=== PATIENT | female | born 1995 | race African-American/Black ===

== ENCOUNTER 2022-03-27 23:25 | Emergency (ER) ==
[~2022-03-27] VITALS: Ht 162.6 cm; Wt 120.6 kg
[2022-03-27 23:26] VITALS: BP 176/102
== END 2022-03-27 23:47 | disposition left against medical advice (07) ==
LOC: M ED 23:25
DX: Z53.21 Procedure and treatment not carried out due to patient leaving prior to being seen by health care provider (principal)

== ENCOUNTER 2022-03-29 20:09 | Emergency (ER) | payer OTHER ==
[~2022-03-29] VITALS: Ht 162.6 cm; Wt 119.1 kg
[2022-03-29 23:19] VITALS: BP 142/82
[2022-03-29] MEDS ORDERED: MORPHINE 4 MG/ML 1ML VIAL/SYRINGE IV ONE (23:30)
[2022-03-29] MEDS ORDERED: ONDANSETRON 4MG/2ML VIAL IV ONE (23:30)
[2022-03-29 23:49] LABS: BASO # 0.1 10^3/uL (0.0-0.2); BASO % 0.3 % (0.0-1.0); EOS # 0.3 10^3/uL (0.0-0.5); EOS % 2.2 % (0.0-3.0); HEMATOCRIT 43.1 % (36.0-47.0); HEMOGLOBIN 14.6 g/dl (12.0-15.5); LYMPH # 5.7 10^3/uL (1.5-5.0); LYMPH % 37.9 % (24.0-44.0); MEAN CORPUSCULAR HEMOGLOBIN 26.8 pg (27.0-33.0); MEAN CORPUSCULAR HGB CONC 33.9 g/dl (32.0-36.5); MEAN CORPUSCULAR VOLUME 79.2 fl (80.0-96.0); MONO # 0.8 10^3/uL (0.0-0.8); MONO % 5.5 % (2.0-8.0); NEUTROPHILS # 8.1 10^3/uL (1.5-8.5); NEUTROPHILS % 53.8 % (36.0-66.0); PLATELET COUNT, AUTOMATED 274 10^3/uL (150-450); RED BLOOD COUNT 5.44 10^6/uL (4.00-5.40)
[2022-03-30 00:07] LABS: ERYTHROCYTE SEDIMENTATION RATE 33 mm/hr (0-20)
[2022-03-30] MEDS ORDERED: DALBAVANCIN 1,500 MG in D5W 250 ML IV ONE (00:30)
[2022-03-30] MEDS ORDERED: LIDOCAINE 1% MDV 20ML VIAL SC ONE (00:30)
[2022-03-30] MEDS ORDERED: MORPHINE 4 MG/ML 1ML VIAL/SYRINGE IV ONE (00:45)
[2022-03-30] MEDS ORDERED: HYDR-3713 PO (02:32)
[2022-03-30] MEDS ORDERED: NORCO 5/325MG TABLET (HOME DOSE PACK) PO ONE (02:50)
[2022-03-30 03:30] LABS: HEMOGLOBIN A1c 11.7 %
== END 2022-03-30 03:02 | disposition home or self-care (01) ==
LOC: M ED 20:09
DX: N61.1 Abscess of the breast and nipple (principal); E11.9 Type 2 diabetes mellitus without complications; F17.200 Nicotine dependence, unspecified, uncomplicated
CPT/HCPCS: 80047; 83036; 83605; 85025; 85652; 86140; 87070; 96365; 96375; 96376; 99284; J0875; J2270; J2405

== ENCOUNTER 2022-07-15 01:22 | Emergency (ER) | payer OTHER ==
[~2022-07-15] VITALS: Ht 160 cm; Wt 118.2 kg
[~2022-07-15 01:22] MED LIST: HYDR-3713 PO
[2022-07-15 01:23] VITALS: BP 171/99
[2022-07-15] MEDS ORDERED: KETOROLAC 30 MG/ML 1ML VIAL IV ONE (03:45)
[2022-07-15 04:05] LABS: GC DNA AMPLIFICATION NEGATIVE (NEGATIVE)
[2022-07-15 04:06] LABS: BASO % 0.3 % (0.0-1.0); EOS # 0.2 10^3/uL (0.0-0.5); EOS % 2.9 % (0.0-3.0); HEMATOCRIT 40.9 % (36.0-47.0); HEMOGLOBIN 13.9 g/dl (12.0-15.5); LYMPH # 3.3 10^3/uL (1.5-5.0); LYMPH % 41.6 % (24.0-44.0); MEAN CORPUSCULAR HEMOGLOBIN 26.7 pg (27.0-33.0); MEAN CORPUSCULAR VOLUME 78.5 fl (80.0-96.0); MONO # 0.6 10^3/uL (0.0-0.8); NEUTROPHILS # 3.8 10^3/uL (1.5-8.5); NEUTROPHILS % 47.9 % (36.0-66.0); PLATELET COUNT, AUTOMATED 212 10^3/uL (150-450); RED BLOOD COUNT 5.21 10^6/uL (4.00-5.40)
[2022-07-15 04:38] LABS: BLOOD UREA NITROGEN 10 MG/DL (7-18); CARBON DIOXIDE LEVEL 26 MEQ/L (21-32); CHLORIDE LEVEL 101 MEQ/L (98-107); CREATININE FOR GFR 0.68 MG/DL (0.55-1.30); GLOMERULAR FILTRATION RATE > 60.0 (>60); GLUCOSE, FASTING 284 MG/DL (70-100); MAGNESIUM LEVEL 1.8 MG/DL (1.8-2.4); POTASSIUM SERUM 3.9 MEQ/L (3.5-5.1); SODIUM LEVEL 133 MEQ/L (136-145)
[2022-07-15] MEDS ORDERED: metroNIDAZOLE (FLAGYL) 500MG TABLET PO ONE (04:45)
[2022-07-15] MEDS ORDERED: traMADol 50 MG TAB PO ONE (04:50)
[2022-07-15] MEDS ORDERED: METR-265 PO (04:53)
[2022-07-15] MEDS ORDERED: FLUC150T9 PO (04:53)
[2022-07-15] MEDS ORDERED: FLUCONAZOLE 50MG TABLET PO ONE (05:00)
[2022-07-15] MEDS ORDERED: VALA1TAB5 PO (05:49)
[2022-07-15] MEDS ORDERED: NORCO 5/325MG TABLET (HOME DOSE PACK) PO ONE (05:50)
== END 2022-07-15 06:47 | disposition home or self-care (01) ==
LOC: M ED 01:22
DX: A60.04 Herpesviral vulvovaginitis (principal); B37.31 Acute candidiasis of vulva and vagina
CPT/HCPCS: 80048; 81000; 81015; 83735; 85025; 87086; 87210; 87529; 87661; 87810; 87850; 96374; 99283; J1885

== ENCOUNTER 2022-07-28 04:20 | Emergency (ER) | payer OTHER ==
[~2022-07-28] VITALS: Ht 160 cm; Wt 117.7 kg
[~2022-07-28 04:20] MED LIST changes: +FLUC150T9 PO; +METR-265 PO; +VALA1TAB5 PO
[2022-07-28 04:21] VITALS: BP 144/85
[2022-07-28] MEDS ORDERED: METF-838 PO (04:29)
[2022-07-28] MEDS ORDERED: LISI5TAB11 PO (04:30)
[2022-07-28] MEDS ORDERED: ATOR1TAB21 PO (04:30)
[2022-07-28] MEDS ORDERED: FLUO40CA PO (04:30)
[2022-07-28] MEDS ORDERED: GLIM4TAB5 PO (04:30)
[2022-07-28] MEDS ORDERED: LEVO100T5 PO (04:30)
[2022-07-28] MEDS ORDERED: KETOROLAC 30 MG/ML 1ML VIAL IM ONE (06:30)
[2022-07-28] MEDS ORDERED: KETOROLAC 30 MG/ML 1ML VIAL IV ONE (06:40)
[2022-07-28] MEDS ORDERED: DOXYCYCLINE HYCLATE 100 MG in D5W MINI-BAG PLUS 100 ML IV ONE (06:40)
[2022-07-28] MEDS ORDERED: DOXY-443 PO (07:13)
[2022-07-28 07:14] LABS: BASO # 0.1 10^3/uL (0.0-0.2); BASO % 0.4 % (0.0-1.0); EOS # 0.3 10^3/uL (0.0-0.5); EOS % 1.9 % (0.0-3.0); HEMATOCRIT 38.9 % (36.0-47.0); LYMPH # 5.5 10^3/uL (1.5-5.0); LYMPH % 39.8 % (24.0-44.0); MEAN CORPUSCULAR HEMOGLOBIN 26.4 pg (27.0-33.0); MEAN CORPUSCULAR HGB CONC 33.4 g/dl (32.0-36.5); MEAN CORPUSCULAR VOLUME 78.9 fl (80.0-96.0); MONO # 0.6 10^3/uL (0.0-0.8); MONO % 4.2 % (2.0-8.0); NEUTROPHILS # 7.4 10^3/uL (1.5-8.5); NEUTROPHILS % 53.4 % (36.0-66.0); PLATELET COUNT, AUTOMATED 264 10^3/uL (150-450); RED BLOOD COUNT 4.93 10^6/uL (4.00-5.40); WHITE BLOOD COUNT 13.8 10^3/uL (4.0-10.0)
[2022-07-28 07:51] LABS: BLOOD UREA NITROGEN 11 MG/DL (7-18); CALCIUM LEVEL 9.2 MG/DL (8.5-10.1); CARBON DIOXIDE LEVEL 26 MEQ/L (21-32); CHLORIDE LEVEL 99 MEQ/L (98-107); CREATININE FOR GFR 0.63 MG/DL (0.55-1.30); GLOMERULAR FILTRATION RATE > 60.0 (>60); GLUCOSE, FASTING 325 MG/DL (70-100); SODIUM LEVEL 132 MEQ/L (136-145)
[2022-07-29] MEDS ORDERED: GLIM2TAB4 PO (22:27)
[2022-07-29] MEDS ORDERED: FLUO20CA22 PO (22:27)
[2022-07-29] MEDS ORDERED: DOXY-443 PO (22:27)
[2022-07-29] MEDS ORDERED: LEVE1INJ5 INJ (22:27)
[2022-07-29] MEDS ORDERED: med rec comment (22:28)
== END 2022-07-28 08:32 | disposition home or self-care (01) ==
LOC: M ED 04:20
DX: L02.91 Cutaneous abscess, unspecified (principal); L73.2 Hidradenitis suppurativa; E11.65 Type 2 diabetes mellitus with hyperglycemia; E78.5 Hyperlipidemia, unspecified; E03.9 Hypothyroidism, unspecified; F17.200 Nicotine dependence, unspecified, uncomplicated; Z79.4 Long term (current) use of insulin; Z79.84 Long term (current) use of oral hypoglycemic drugs
CPT/HCPCS: 80048; 84702; 85025; 87040; 87070; 87077; 87186; 87205; 96361; 96374; 99283; J1885

== ENCOUNTER 2022-07-29 13:36 | Emergency (ER) | payer OTHER ==
[~2022-07-29] VITALS: Ht 160 cm; Wt 118.2 kg
[~2022-07-29 13:36] MED LIST changes: +ATOR1TAB21 PO; +DOXY-443 PO; +FLUO40CA PO; +GLIM4TAB5 PO; +LEVO100T5 PO; +LISI5TAB11 PO; +METF-838 PO
[2022-07-29] MEDS ORDERED: KETOROLAC 30 MG/ML 1ML VIAL IM ONE (15:50)
[2022-07-29] MEDS ORDERED: LIDOCAINE 1% MDV 20ML VIAL SC ONE (15:50)
[2022-07-29 16:37] VITALS: BP 139/68
[2022-07-29] MEDS ORDERED: LEVE1INJ5 INJ (22:27)
[2022-07-29] MEDS ORDERED: DOXY-443 PO (22:27)
[2022-07-29] MEDS ORDERED: FLUO20CA22 PO (22:27)
[2022-07-29] MEDS ORDERED: GLIM2TAB4 PO (22:27)
[2022-07-29] MEDS ORDERED: med rec comment (22:28)
== END 2022-07-29 16:39 | disposition home or self-care (01) ==
LOC: M ED 13:36
DX: N61.1 Abscess of the breast and nipple (principal); L03.313 Cellulitis of chest wall; E11.9 Type 2 diabetes mellitus without complications; Z79.899 Other long term (current) drug therapy; Z79.84 Long term (current) use of oral hypoglycemic drugs; Z79.890 Hormone replacement therapy
CPT/HCPCS: 10060; 87070; 87205; 96372; 99284; J1885

== ENCOUNTER 2022-07-29 19:23 | Inpatient (IN) | payer OTHER ==
[~2022-07-29] VITALS: Ht 160 cm; Wt 130.7 kg
[2022-07-29] MEDS ORDERED: CHARCOAL ACTIVATED LIQUID 25 GM/120 ML BTL PO ONE (19:40)
[2022-07-29] MEDS: NS 1,000 ML IV SCH (19:51)
[2022-07-29 19:52] LABS: HEMATOCRIT 44.8 % (36.0-47.0); MEAN CORPUSCULAR HEMOGLOBIN 26.9 pg (27.0-33.0); MEAN CORPUSCULAR HGB CONC 34.2 g/dl (32.0-36.5); MEAN CORPUSCULAR VOLUME 78.9 fl (80.0-96.0); PLATELET COUNT, AUTOMATED 315 10^3/uL (150-450); RED BLOOD COUNT 5.68 10^6/uL (4.00-5.40); WHITE BLOOD COUNT 15.6 10^3/uL (4.0-10.0)
[2022-07-29 20:03] LABS: HEMOGLOBIN 15.3 g/dl (12.0-15.5)
[2022-07-29 20:14] LABS: HCG, SERUM QUALITATIVE NEGATIVE (NEGATIVE)
[2022-07-29 20:31] LABS: RSV AMPLIFICATION NEGATIVE (NEGATIVE)
[2022-07-29 20:35] LABS: ALBUMIN 3.6 GM/DL (3.2-5.2); ALT/SGPT 33 U/L (12-78); BILIRUBIN,DIRECT 0.2 MG/DL (0.0-0.2); BILIRUBIN,TOTAL 0.8 MG/DL (0.2-1.0); BLOOD UREA NITROGEN 10 MG/DL (7-18); CALCIUM LEVEL 9.4 MG/DL (8.5-10.1); CARBON DIOXIDE LEVEL 27 MEQ/L (21-32); CHLORIDE LEVEL 101 MEQ/L (98-107); CREATININE FOR GFR 0.76 MG/DL (0.55-1.30); ETHYL ALCOHOL (ETHANOL) < 0.003 % (0.000-0.010); GLOMERULAR FILTRATION RATE > 60.0 (>60); GLUCOSE, FASTING 270 MG/DL (70-100); POTASSIUM SERUM 4.3 MEQ/L (3.5-5.1); SALICYLATE LEVEL < 1.7 MG/DL (5.0-30.0); SODIUM LEVEL 133 MEQ/L (136-145); TOTAL PROTEIN 7.5 GM/DL (6.4-8.2)
[2022-07-29 21:08] LABS: AMPHETAMINES LEVEL URINE NEGATIVE (NEGATIVE); BARBITURATES URINE NEGATIVE (NEGATIVE); BENZODIAZEPINES URINE NEGATIVE (NEGATIVE); CANNABINOIDS URINE POSITIVE (NEGATIVE); COCAINE METABOLITE URINE NEGATIVE (NEGATIVE); METHADONE URINE NEGATIVE (NEGATIVE); OPIATES URINE NEGATIVE (NEGATIVE); PHENCYCLIDINE URINE NEGATIVE (NEGATIVE)
[2022-07-29] MEDS ORDERED: LORazepam 2 MG/ML VIAL IV STA ×2 (21:43→23:17)
[2022-07-29] MEDS ORDERED: LORazepam 2 MG/ML VIAL As Ordered ONE (21:45)
[2022-07-29] MEDS ORDERED: MIDAZOLAM INJ 2MG/2ML VIAL (J2250 PER 1MG) IM ONE (22:25)
[2022-07-29] MEDS ORDERED: LEVE1INJ5 INJ (22:27)
[2022-07-29] MEDS ORDERED: DOXY-443 PO (22:27)
[2022-07-29] MEDS ORDERED: FLUO20CA22 PO (22:27)
[2022-07-29] MEDS ORDERED: GLIM2TAB4 PO (22:27)
[2022-07-29] MEDS ORDERED: med rec comment (22:28)
[2022-07-29] MEDS ORDERED: HOME MED LIST COMPLETE! XX SCH (22:30)
[2022-07-29] MEDS ORDERED: HALOPERIDOL 5MG/ML VIAL (J1630 PER 1) As Ordered ONE (22:51)
[2022-07-29] MEDS ORDERED: HALOPERIDOL 5MG/ML VIAL (J1630 PER 1) IM ONE (22:55)
[2022-07-30] MEDS: NS 1,000 ML IV SCH ×2 (00:48→10:30)
[2022-07-30] MEDS ORDERED: MAALOX 30 ML SUSP *UDC PO PRN (05:35)
[2022-07-30] MEDS ORDERED: MOM 30ML SUSPENSION UDC PO PRN (05:35)
[2022-07-30] MEDS ORDERED: OLANZapine ORAL DISINTEGRATING TAB 5MG PO PRN (05:35)
[2022-07-30] MEDS: LEVOTHYROXINE 100MCG TABLET (0.1MG) PO SCH (06:20)
[2022-07-30] MEDS ORDERED: metFORMIN XR 500MG TAB *GLUCOPHAGE XR PO SCH (08:00)
[2022-07-30] MEDS ORDERED: DOXYCYCLINE HYCLATE 100MG TABLET PO SCH (09:00)
[2022-07-30] MEDS ORDERED: GLIMEPIRIDE 2 MG TAB PO SCH (09:00)
[2022-07-30] MEDS ORDERED: LEVEMIR (INSULIN DETEMIR) 1 UNITS/0.01ML SC SCH ×2 (09:00→21:00)
[2022-07-30] MEDS ORDERED: NS 1,000 ML IV ONE (09:20)
[2022-07-30] MEDS ORDERED: GLUCOSE 4GM CHEW TABLET PO PRN (09:30)
[2022-07-30] MEDS ORDERED: GLUCAGON INJ 1MG VIAL SC PRN (09:30)
[2022-07-30] MEDS ORDERED: DEXTROSE 50% 50 ML SYRINGE IV PRN (09:30)
[2022-07-30] MEDS: FLUoxetine 20MG CAP PO SCH ×2 (09:40→21:15)
[2022-07-30] MEDS ORDERED: ACETAMINOPHEN TAB 650MG DOSE (2X325MG) PO PRN (09:50)
[2022-07-30 10:06] LABS: BASO # 0.1 10^3/uL (0.0-0.2); BASO % 0.5 % (0.0-1.0); EOS # 0.2 10^3/uL (0.0-0.5); EOS % 2.2 % (0.0-3.0); HEMATOCRIT 42.3 % (36.0-47.0); HEMOGLOBIN 13.9 g/dl (12.0-15.5); LYMPH # 4.4 10^3/uL (1.5-5.0); LYMPH % 43.7 % (24.0-44.0); MEAN CORPUSCULAR HEMOGLOBIN 26.3 pg (27.0-33.0); MEAN CORPUSCULAR HGB CONC 32.9 g/dl (32.0-36.5); MEAN CORPUSCULAR VOLUME 80.1 fl (80.0-96.0); MONO # 0.7 10^3/uL (0.0-0.8); MONO % 6.9 % (2.0-8.0); NEUTROPHILS # 4.7 10^3/uL (1.5-8.5); NEUTROPHILS % 46.4 % (36.0-66.0); PLATELET COUNT, AUTOMATED 278 10^3/uL (150-450); RED BLOOD COUNT 5.28 10^6/uL (4.00-5.40); WHITE BLOOD COUNT 10.1 10^3/uL (4.0-10.0)
[2022-07-30 10:16] LABS: INR 0.98; PROTHROMBIN TIME 13.2 SECONDS (12.5-14.5)
[2022-07-30 10:17] LABS: PARTIAL THROMBOPLASTIN TIME 27.4 SECONDS (24.8-34.2)
[2022-07-30 10:32] LABS: HEMOGLOBIN A1c 11.6 %
[2022-07-30] MEDS: LACTOBACILLUS ACIDOPHILUS CAP (BACID) PO SCH ×2 (10:37→17:56)
[2022-07-30 10:47] LABS: ALBUMIN 3.3 GM/DL (3.2-5.2); ALT/SGPT 29 U/L (12-78); BILIRUBIN,TOTAL 0.6 MG/DL (0.2-1.0); BLOOD UREA NITROGEN 7 MG/DL (7-18); CALCIUM LEVEL 9.3 MG/DL (8.5-10.1); CARBON DIOXIDE LEVEL 25 MEQ/L (21-32); CHLORIDE LEVEL 103 MEQ/L (98-107); CHOLESTEROL LEVEL 167 MG/DL (<200); CHOLESTEROL RISK RATIO 5.758 (<5); CREATININE FOR GFR 0.85 MG/DL (0.55-1.30); GLOMERULAR FILTRATION RATE > 60.0 (>60); GLUCOSE, FASTING 457 MG/DL (70-100); HDL CHOLESTEROL 29 MG/DL (>40); LDL CHOLESTEROL 80 MG/DL (<100); NON-HDL-C 138 MG/DL; POTASSIUM SERUM 4.3 MEQ/L (3.5-5.1); SODIUM LEVEL 134 MEQ/L (136-145); TOTAL PROTEIN 6.8 GM/DL (6.4-8.2); TRIGLYCERIDES LEVEL 290 MG/DL (<150)
[2022-07-30] MEDS ORDERED: LEVEMIR (INSULIN DETEMIR) 1 UNITS/0.01ML SC ONE (11:00)
[2022-07-30 11:21] LABS: ABG BASE EXCESS -1.8 (-2.0-2.0); ABG HCO3 22.1 MEQ/L (22.0-26.0); ABG O2 SATURATION 97.7 % (95.0-99.0); ABG PARTIAL PRESSURE CO2 34.8 mmHg (35.0-45.0); ABG PARTIAL PRESSURE O2 105.8 mmHg (75.0-100.0); ABG TOTAL CO2 23.1 MEQ/L (22.0-29.0)
[2022-07-30] MEDS ORDERED: LORazepam 2 MG/ML VIAL IV STA (11:24)
[2022-07-30 11:38] LABS: ACETONE/KETONE 1.58 MG/DL (<2.81)
[2022-07-30] MEDS: INSULIN LISPRO (NovoLOG) PER UNIT SC SCH ×3 (13:13→21:15)
[2022-07-30 15:10] VITALS: BP 149/82
[2022-07-30] MEDS: CLINDAMYCIN TOP 1% SOLN 60 ML BTL TOP SCH ×2 (15:24→21:16)
[2022-07-30] MEDS ORDERED: NS 1,000 ML IV SCH (20:40)
[2022-07-30] MEDS ORDERED: CEFUROXIME 500 MG TAB PO SCH (21:00)
[2022-07-30] MEDS: lisinopriL 5 MG TAB PO SCH (21:16)
[2022-07-30] MEDS: ATORVASTATIN 20 MG TAB PO SCH (21:16)
[2022-07-30 22:00] VITALS: BP 152/84
[2022-07-31] MEDS: traZODone 50 MG TAB PO PRN (00:50)
[2022-07-31 05:49] LABS: HEMATOCRIT 37.9 % (36.0-47.0); HEMOGLOBIN 12.6 g/dl (12.0-15.5); MEAN CORPUSCULAR HEMOGLOBIN 26.7 pg (27.0-33.0); MEAN CORPUSCULAR HGB CONC 33.2 g/dl (32.0-36.5); MEAN CORPUSCULAR VOLUME 80.3 fl (80.0-96.0); PLATELET COUNT, AUTOMATED 227 10^3/uL (150-450); RED BLOOD COUNT 4.72 10^6/uL (4.00-5.40); WHITE BLOOD COUNT 9.5 10^3/uL (4.0-10.0)
[2022-07-31 05:50] VITALS: BP 138/83
[2022-07-31] MEDS: LEVOTHYROXINE 100MCG TABLET (0.1MG) PO SCH (05:56)
[2022-07-31 06:26] LABS: ALBUMIN 2.8 GM/DL (3.2-5.2); ALT/SGPT 27 U/L (12-78); BILIRUBIN,TOTAL 0.5 MG/DL (0.2-1.0); BLOOD UREA NITROGEN 8 MG/DL (7-18); CALCIUM LEVEL 8.7 MG/DL (8.5-10.1); CARBON DIOXIDE LEVEL 26 MEQ/L (21-32); CHLORIDE LEVEL 106 MEQ/L (98-107); CREATININE FOR GFR 0.57 MG/DL (0.55-1.30); GLOMERULAR FILTRATION RATE > 60.0 (>60); GLUCOSE, FASTING 287 MG/DL (70-100); POTASSIUM SERUM 3.8 MEQ/L (3.5-5.1); SODIUM LEVEL 137 MEQ/L (136-145); TOTAL PROTEIN 5.9 GM/DL (6.4-8.2)
[2022-07-31] MEDS ORDERED: GLIMEPIRIDE 2 MG TAB PO SCH (07:30)
[2022-07-31] MEDS: LACTOBACILLUS ACIDOPHILUS CAP (BACID) PO SCH ×2 (08:56→17:03)
[2022-07-31] MEDS: FLUoxetine 20MG CAP PO SCH ×2 (08:56→20:34)
[2022-07-31] MEDS: LEVEMIR (INSULIN DETEMIR) 1 UNITS/0.01ML SC SCH ×2 (08:57→20:33)
[2022-07-31] MEDS: INSULIN LISPRO (NovoLOG) PER UNIT SC SCH ×4 (08:57→20:34)
[2022-07-31] MEDS: CLINDAMYCIN TOP 1% SOLN 60 ML BTL TOP SCH ×2 (09:40→20:35)
[2022-07-31] MEDS ORDERED: HALOPERIDOL 5MG/ML VIAL (J1630 PER 1) IM PRN (11:30)
[2022-07-31] MEDS ORDERED: LORazepam 2 MG/ML VIAL IM PRN (11:30)
[2022-07-31 14:00] VITALS: BP 140/82
[2022-07-31] MEDS: ENOXAPARIN 40MG/0.4ML SYRINGE (J1650 PER 10MG) SC SCH (17:03)
[2022-07-31 20:00] VITALS: BP 149/88
[2022-07-31] MEDS: ATORVASTATIN 20 MG TAB PO SCH (20:34)
[2022-07-31] MEDS: lisinopriL 5 MG TAB PO SCH (20:34)
[2022-08-01] MEDS: LEVOTHYROXINE 100MCG TABLET (0.1MG) PO SCH (05:18)
[2022-08-01 06:00] VITALS: BP 136/85
[2022-08-01 06:05] LABS: HEMATOCRIT 37.2 % (36.0-47.0); HEMOGLOBIN 12.4 g/dl (12.0-15.5); MEAN CORPUSCULAR HEMOGLOBIN 26.7 pg (27.0-33.0); MEAN CORPUSCULAR HGB CONC 33.3 g/dl (32.0-36.5); MEAN CORPUSCULAR VOLUME 80.2 fl (80.0-96.0); PLATELET COUNT, AUTOMATED 238 10^3/uL (150-450); RED BLOOD COUNT 4.64 10^6/uL (4.00-5.40)
[2022-08-01 06:41] LABS: ALBUMIN 2.9 GM/DL (3.2-5.2); ALT/SGPT 31 U/L (12-78); BILIRUBIN,TOTAL 0.4 MG/DL (0.2-1.0); BLOOD UREA NITROGEN 6 MG/DL (7-18); CALCIUM LEVEL 8.7 MG/DL (8.5-10.1); CARBON DIOXIDE LEVEL 26 MEQ/L (21-32); CHLORIDE LEVEL 107 MEQ/L (98-107); CREATININE FOR GFR 0.56 MG/DL (0.55-1.30); GLOMERULAR FILTRATION RATE > 60.0 (>60); GLUCOSE, FASTING 240 MG/DL (70-100); SODIUM LEVEL 141 MEQ/L (136-145); TOTAL PROTEIN 5.6 GM/DL (6.4-8.2)
[2022-08-01] MEDS: INSULIN LISPRO (NovoLOG) PER UNIT SC SCH ×4 (07:58→20:58)
[2022-08-01] MEDS: LACTOBACILLUS ACIDOPHILUS CAP (BACID) PO SCH ×2 (07:58→17:08)
[2022-08-01] MEDS: LEVEMIR (INSULIN DETEMIR) 1 UNITS/0.01ML SC SCH ×2 (08:00→21:05)
[2022-08-01] MEDS: FLUoxetine 20MG CAP PO SCH ×2 (08:00→21:03)
[2022-08-01] MEDS: CLINDAMYCIN TOP 1% SOLN 60 ML BTL TOP SCH ×2 (08:01→21:03)
[2022-08-01] MEDS: ENOXAPARIN 40MG/0.4ML SYRINGE (J1650 PER 10MG) SC SCH (08:01)
[2022-08-01] MEDS: SITagliptin 50 MG TAB (JANUVIA) PO SCH (08:08)
[2022-08-01 14:00] VITALS: BP 136/85
[2022-08-01] MEDS: lisinopriL 5 MG TAB PO SCH (21:03)
[2022-08-01] MEDS: CEFUROXIME 500 MG TAB PO SCH (21:03)
[2022-08-01] MEDS: ATORVASTATIN 20 MG TAB PO SCH (21:04)
[2022-08-01] MEDS: traZODone 50 MG TAB PO PRN ×2 (21:04)
[2022-08-01 22:00] VITALS: BP 142/84
[2022-08-02] MEDS: LEVOTHYROXINE 100MCG TABLET (0.1MG) PO SCH (05:19)
[2022-08-02 06:00] VITALS: BP 103/58
[2022-08-02] MEDS: LACTOBACILLUS ACIDOPHILUS CAP (BACID) PO SCH ×2 (08:29→17:54)
[2022-08-02] MEDS: FLUoxetine 20MG CAP PO SCH ×2 (08:29→20:24)
[2022-08-02] MEDS: CEFUROXIME 500 MG TAB PO SCH ×2 (08:29→20:24)
[2022-08-02] MEDS: SITagliptin 50 MG TAB (JANUVIA) PO SCH (08:29)
[2022-08-02] MEDS: ENOXAPARIN 40MG/0.4ML SYRINGE (J1650 PER 10MG) SC SCH (08:30)
[2022-08-02] MEDS: CLINDAMYCIN TOP 1% SOLN 60 ML BTL TOP SCH ×2 (08:30→20:27)
[2022-08-02] MEDS: INSULIN LISPRO (NovoLOG) PER UNIT SC SCH ×4 (08:31→20:29)
[2022-08-02] MEDS: LEVEMIR (INSULIN DETEMIR) 1 UNITS/0.01ML SC SCH ×2 (08:32→20:25)
[2022-08-02] MEDS ORDERED: SITA50TAB PO (12:35)
[2022-08-02] MEDS ORDERED: RISATAB3 PO (12:35)
[2022-08-02] MEDS ORDERED: LEVE1INJ5 INJ (12:35)
[2022-08-02] MEDS ORDERED: CLIN1SOL TOP (12:35)
[2022-08-02] MEDS ORDERED: INSULIN LISPRO (NovoLOG) PER UNIT SC SCH (17:30)
[2022-08-02] MEDS: traZODone 50 MG TAB PO PRN (20:24)
[2022-08-02] MEDS: ATORVASTATIN 20 MG TAB PO SCH (20:25)
[2022-08-02 20:26] VITALS: BP 140/79
[2022-08-02] MEDS: lisinopriL 5 MG TAB PO SCH (20:26)
[2022-08-03 05:04] VITALS: BP 140/82
[2022-08-03] MEDS: LEVOTHYROXINE 100MCG TABLET (0.1MG) PO SCH (05:26)
[2022-08-03] MEDS ORDERED: INSUHUMDS SC ×2 (07:49→10:36)
[2022-08-03] MEDS: ENOXAPARIN 40MG/0.4ML SYRINGE (J1650 PER 10MG) SC SCH (09:17)
[2022-08-03] MEDS: CEFUROXIME 500 MG TAB PO SCH (09:17)
[2022-08-03] MEDS: SITagliptin 50 MG TAB (JANUVIA) PO SCH (09:17)
[2022-08-03] MEDS: CLINDAMYCIN TOP 1% SOLN 60 ML BTL TOP SCH (09:17)
[2022-08-03] MEDS: LACTOBACILLUS ACIDOPHILUS CAP (BACID) PO SCH (09:17)
[2022-08-03] MEDS: FLUoxetine 20MG CAP PO SCH (09:17)
[2022-08-03] MEDS: INSULIN LISPRO (NovoLOG) PER UNIT SC SCH ×4 (09:18→12:28)
[2022-08-03] MEDS: LEVEMIR (INSULIN DETEMIR) 1 UNITS/0.01ML SC SCH (09:19)
[2022-08-03] MEDS ORDERED: RISATAB3 PO (10:36)
[2022-08-03] MEDS ORDERED: CLIN1SOL TOP (10:36)
[2022-08-03] MEDS ORDERED: SITA50TAB PO (10:36)
[2022-08-03] MEDS ORDERED: LEVE1INJ5 INJ (10:36)
== END 2022-08-03 12:37 | DRG 917 ==
LOC: M ED 19:23 → UNDOADMIN 07-30 05:33 → M ED INP 07-30 05:33 → ENRESERV 07-30 13:52 → M MSPAV 07-30 15:04
PROVIDERS: ADMIT Psychiatry & Neurology Psychiatry; ATTEND Student in an Organized Health Care Education/Training Program
DX: T39.1X2A Poisoning by 4-Aminophenol derivatives, intentional self-harm, initial encounter (principal); A41.9 Sepsis, unspecified organism; Z68.42 Body mass index [BMI] 45.0-49.9, adult; E11.9 Type 2 diabetes mellitus without complications; B00.9 Herpesviral infection, unspecified; E03.9 Hypothyroidism, unspecified; L73.2 Hidradenitis suppurativa; I10 Essential (primary) hypertension; E78.5 Hyperlipidemia, unspecified; E66.01 Morbid (severe) obesity due to excess calories; F31.9 Bipolar disorder, unspecified; F32.A Depression, unspecified; T14.91XA Suicide attempt, initial encounter; E87.20 Acidosis, unspecified; Z79.4 Long term (current) use of insulin; Z79.84 Long term (current) use of oral hypoglycemic drugs; Z79.890 Hormone replacement therapy; Z79.899 Other long term (current) drug therapy; N61.0 Mastitis without abscess; G47.00 Insomnia, unspecified; K59.00 Constipation, unspecified

== ENCOUNTER 2022-08-03 12:43 | Inpatient (IN) | payer OTHER ==
[~2022-08-03] VITALS: Ht 160 cm; Wt 119.2 kg
[~2022-08-03 12:43] MED LIST changes: +CLIN1SOL TOP; +FLUO20CA22 PO; +GLIM2TAB4 PO; +INSUHUMDS SC; +LEVE1INJ5 INJ; +RISATAB3 PO; +SITA50TAB PO; +med rec comment
[2022-08-03] MEDS ORDERED: MAALOX 30 ML SUSP *UDC PO PRN (13:35)
[2022-08-03] MEDS ORDERED: NICOTINE 21MG/24HR 1 EA TRANSDERMAL TD PRN (13:35)
[2022-08-03] MEDS ORDERED: MOM 30ML SUSPENSION UDC PO PRN (13:35)
[2022-08-03 18:15] VITALS: BP 168/82
[2022-08-03 18:29] VITALS: BP 168/82
[2022-08-03] MEDS ORDERED: DEXTROSE 50% 50 ML SYRINGE IV PRN (20:30)
[2022-08-03] MEDS ORDERED: GLUCOSE 4GM CHEW TABLET PO PRN (20:30)
[2022-08-03] MEDS ORDERED: GLUCAGON INJ 1MG VIAL SC PRN (20:30)
[2022-08-03] MEDS: ATORVASTATIN 20 MG TAB PO SCH (20:47)
[2022-08-03] MEDS: LEVEMIR (INSULIN DETEMIR) 1 UNITS/0.01ML SC SCH (20:47)
[2022-08-03] MEDS: FLUoxetine 20MG CAP PO SCH (20:47)
[2022-08-03] MEDS: INSULIN LISPRO (NovoLOG) PER UNIT SC SCH (20:48)
[2022-08-03] MEDS: traZODone 50 MG TAB PO PRN (23:14)
[2022-08-04] MEDS: LEVOTHYROXINE 100MCG TABLET (0.1MG) PO SCH (05:43)
[2022-08-04 06:23] VITALS: BP 128/86
[2022-08-04] MEDS: INSULIN LISPRO (NovoLOG) PER UNIT SC SCH ×5 (06:37→20:08)
[2022-08-04] MEDS ORDERED: LEVEMIR (INSULIN DETEMIR) 1 UNITS/0.01ML SC SCH (09:00)
[2022-08-04] MEDS: SITagliptin 50 MG TAB (JANUVIA) PO SCH (09:05)
[2022-08-04] MEDS: lisinopriL 5 MG TAB PO SCH (09:05)
[2022-08-04] MEDS: LEVEMIR (INSULIN DETEMIR) 1 UNITS/0.01ML SC SCH ×2 (09:05→20:08)
[2022-08-04] MEDS: FLUoxetine 20MG CAP PO SCH (09:05)
[2022-08-04] MEDS ORDERED: INSULIN LISPRO (NovoLOG) PER UNIT SC SCH (12:00)
[2022-08-04] MEDS: CEFUROXIME 500 MG TAB PO SCH ×2 (12:43→20:06)
[2022-08-04] MEDS: CLINDAMYCIN TOP 1% SOLN 60 ML BTL TOP SCH ×2 (13:28→21:02)
[2022-08-04] MEDS ORDERED: FLUoxetine 20MG CAP PO ONE (20:00)
[2022-08-04] MEDS: ATORVASTATIN 20 MG TAB PO SCH (20:07)
[2022-08-04] MEDS: traZODone 50 MG TAB PO PRN (21:00)
[2022-08-04] MEDS ORDERED: DIVALPROEX 500MG *ER* TAB PO SCH (21:00)
[2022-08-05] MEDS: LEVOTHYROXINE 100MCG TABLET (0.1MG) PO SCH (05:53)
[2022-08-05 06:27] VITALS: BP 141/86
[2022-08-05] MEDS: INSULIN LISPRO (NovoLOG) PER UNIT SC SCH ×6 (06:35→20:23)
[2022-08-05] MEDS: LEVEMIR (INSULIN DETEMIR) 1 UNITS/0.01ML SC SCH ×2 (08:02→20:23)
[2022-08-05] MEDS: SITagliptin 50 MG TAB (JANUVIA) PO SCH (08:02)
[2022-08-05] MEDS: CEFUROXIME 500 MG TAB PO SCH ×2 (08:02→20:22)
[2022-08-05] MEDS: CLINDAMYCIN TOP 1% SOLN 60 ML BTL TOP SCH ×2 (08:02→20:22)
[2022-08-05] MEDS: lisinopriL 5 MG TAB PO SCH (08:03)
[2022-08-05] MEDS: FLUoxetine 20MG CAP PO SCH (08:03)
[2022-08-05] MEDS: DIVALPROEX 500MG *ER* TAB PO SCH ×2 (12:03→20:22)
[2022-08-05] MEDS: ACETAMINOPHEN TAB 650MG DOSE (2X325MG) PO PRN ×2 (13:00→23:34)
[2022-08-05] MEDS: ATORVASTATIN 20 MG TAB PO SCH (20:22)
[2022-08-05] MEDS: traZODone 50 MG TAB PO PRN (21:57)
[2022-08-06] MEDS: LEVOTHYROXINE 100MCG TABLET (0.1MG) PO SCH (05:57)
[2022-08-06 06:28] VITALS: BP 146/87
[2022-08-06] MEDS: INSULIN LISPRO (NovoLOG) PER UNIT SC SCH ×7 (06:40→20:23)
[2022-08-06] MEDS: LEVEMIR (INSULIN DETEMIR) 1 UNITS/0.01ML SC SCH ×2 (07:51→20:22)
[2022-08-06] MEDS: CLINDAMYCIN TOP 1% SOLN 60 ML BTL TOP SCH ×2 (07:51→20:23)
[2022-08-06] MEDS: SITagliptin 50 MG TAB (JANUVIA) PO SCH (07:52)
[2022-08-06] MEDS: FLUoxetine 20MG CAP PO SCH (07:52)
[2022-08-06] MEDS: CEFUROXIME 500 MG TAB PO SCH ×2 (07:52→20:21)
[2022-08-06] MEDS: DIVALPROEX 500MG *ER* TAB PO SCH ×2 (07:52→20:21)
[2022-08-06] MEDS: lisinopriL 5 MG TAB PO SCH (07:53)
[2022-08-06 16:37] VITALS: BP 141/71
[2022-08-06] MEDS: ATORVASTATIN 20 MG TAB PO SCH (20:23)
[2022-08-06] MEDS: traZODone 50 MG TAB PO PRN (21:36)
[2022-08-07] MEDS: LEVOTHYROXINE 100MCG TABLET (0.1MG) PO SCH (05:13)
[2022-08-07 06:10] VITALS: BP 140/74
[2022-08-07] MEDS: INSULIN LISPRO (NovoLOG) PER UNIT SC SCH ×7 (06:50→20:17)
[2022-08-07] MEDS: CEFUROXIME 500 MG TAB PO SCH (07:37)
[2022-08-07] MEDS: DIVALPROEX 500MG *ER* TAB PO SCH ×2 (07:38→20:16)
[2022-08-07] MEDS: FLUoxetine 20MG CAP PO SCH (07:38)
[2022-08-07] MEDS: lisinopriL 5 MG TAB PO SCH (07:38)
[2022-08-07] MEDS: SITagliptin 50 MG TAB (JANUVIA) PO SCH (07:39)
[2022-08-07] MEDS: LEVEMIR (INSULIN DETEMIR) 1 UNITS/0.01ML SC SCH ×2 (07:40→20:17)
[2022-08-07] MEDS: CLINDAMYCIN TOP 1% SOLN 60 ML BTL TOP SCH (07:41)
[2022-08-07 17:16] VITALS: BP 178/86
[2022-08-07] MEDS ORDERED: LEVE1INJ5 INJ (17:55)
[2022-08-07] MEDS ORDERED: LORazepam 1 MG TAB PO ONE (18:55)
[2022-08-07] MEDS: ATORVASTATIN 20 MG TAB PO SCH (20:16)
[2022-08-07] MEDS: traZODone 50 MG TAB PO PRN (20:16)
[2022-08-07 21:27] VITALS: BP 129/87
[2022-08-08] MEDS: LEVOTHYROXINE 100MCG TABLET (0.1MG) PO SCH (05:47)
[2022-08-08] MEDS: INSULIN LISPRO (NovoLOG) PER UNIT SC SCH ×2 (06:35→06:36)
[2022-08-08 07:06] VITALS: BP 143/84
[2022-08-08] MEDS: SITagliptin 50 MG TAB (JANUVIA) PO SCH (08:41)
[2022-08-08 08:42] VITALS: BP 125/67
[2022-08-08] MEDS: DIVALPROEX 500MG *ER* TAB PO SCH (08:42)
[2022-08-08] MEDS: lisinopriL 5 MG TAB PO SCH (08:42)
[2022-08-08] MEDS: FLUoxetine 20MG CAP PO SCH (08:42)
[2022-08-08] MEDS: LEVEMIR (INSULIN DETEMIR) 1 UNITS/0.01ML SC SCH (08:42)
[2022-08-08] MEDS ORDERED: NICO21PAT TD (10:01)
[2022-08-08] MEDS ORDERED: DEPA500T2 PO (10:01)
[2022-08-08] MEDS ORDERED: SITA50TAB PO (10:01)
[2022-08-08] MEDS ORDERED: FLUO20CA22 PO (10:01)
[2022-08-08] MEDS ORDERED: TRAZ-252 PO (10:01)
[2022-08-08] MEDS ORDERED: CLIN1SOL TOP (10:01)
[2022-08-08] MEDS ORDERED: INSU100I16 SQ (10:21)
[2022-08-08] MEDS ORDERED: LEVE1INJ5 SC (10:21)
== END 2022-08-08 10:57 | disposition home or self-care (01) | DRG 885 ==
LOC: M PSY 12:43
PROVIDERS: ADMIT Psychiatry & Neurology Psychiatry; ATTEND Student in an Organized Health Care Education/Training Program
DX: F31.81 Bipolar II disorder (principal); Z68.42 Body mass index [BMI] 45.0-49.9, adult; E11.9 Type 2 diabetes mellitus without complications; Z79.4 Long term (current) use of insulin; E03.9 Hypothyroidism, unspecified; L73.2 Hidradenitis suppurativa; I10 Essential (primary) hypertension; E78.5 Hyperlipidemia, unspecified; Z79.899 Other long term (current) drug therapy; E66.01 Morbid (severe) obesity due to excess calories; F12.90 Cannabis use, unspecified, uncomplicated